=== PATIENT | male | born 1955 | race Caucasian/White ===

== ENCOUNTER 2016-12-24 04:22 | Emergency (ER) | payer OTHER ==
[~2016-12-24] VITALS: Ht 175.3 cm; Wt 87.1 kg
--- NOTE | 2016-12-24 04:45 | NUR ---
PT BIB SELF FROM FROM, PT C/O LEFT SIDED HEAD PAIN, LEFT SIDED LIP TINGLING CHEST PRESSURE AND LEFT ARM PAIN X 6 DAYS. PT AOX3 RR EVEN AND UNLABORED. NO SOB NOTED. NAD NOTED. NO NVD AT THIS TIME. PT GOWNED AND PLACED ON MONITOR, DR. NASCIMENTO AT BEDSIDE FOR EVAL.
[2016-12-24] MEDS ORDERED: ASPIRIN 325 MG TABLET ONE (04:50)
[2016-12-24] MEDS ORDERED: NITROGLYCERIN 0.4 MG/TAB BOTTLE ONE (04:50)
--- NOTE | 2016-12-24 04:50 | NUR ---
STARTED A SALINE LOCK ON THE LAC G18, BLOOD DRAWN AND SENT TO LAB.
--- NOTE | 2016-12-24 04:58 | NUR ---
PT STATES HE FEELS BETTER AFTER 1ST TAB OF NITRO SL.
[2016-12-24] MEDS ORDERED: ASPIRIN 325 MG TABLET PO ONE (05:00)
[2016-12-24] MEDS ORDERED: NITROGLYCERIN 0.4 MG/TAB BOTTLE SL ONE (05:00)
[2016-12-24 05:10] LABS: BASOPHILS % (AUTO) 0.3 % (0.0-2.0); EOSINOPHILS # (AUTO) 0.1 /CMM (0.0-0.7); EOSINOPHILS % (AUTO) 1.9 % (0.0-6.0); HEMATOCRIT 47 % (39-51); HEMOGLOBIN 15.8 g/dL (13.5-17.5); LYMPHOCYTES # (AUTO) 1.4 /CMM (0.8-4.8); LYMPHOCYTES % (AUTO) 24.4 % (20.0-44.0); MEAN CORPUSCULAR HEMOGLOBIN 31 PG (26.0-33.0); MEAN CORPUSCULAR HGB CONC 33 g/dl (31.0-36.0); MEAN CORPUSCULAR VOLUME 92 fL (80-96); MONOCYTES # (AUTO) 0.9 /CMM (0.1-1.30); NEUTROPHILS # (AUTO) 3.4 /CMM (1.8-8.9); NEUTROPHILS % (AUTO) 58.4 % (43.0-81.0); PLATELET COUNT (AUTO) 205 /CMM (150-450); RDW COEFFICIENT OF VARIATION 13.7 (11.5-15.0); RED BLOOD CELL COUNT(AUTO) 5.18 MIL/uL (4.5-6.0); WHITE BLOOD COUNT (AUTO) 5.8 K/uL (4.3-11.0)
[2016-12-24 05:21] LABS: CARBON DIOXIDE 29 mmol/L (21-32); CHLORIDE 102 mmol/L (98-107); CREATININE 0.9 mg/dL (0.6-1.3); GLUCOSE 114 mg/dL (74-106); POTASSIUM 3.7 mmol/L (3.5-5.1); SODIUM SERUM 138 mmol/L (136-145); UREA NITROGEN, BLOOD 22 mg/dL (7-18)
[2016-12-24 05:23] LABS: INR 0.94 (0.87-1.13); PROTHROMBIN TIME 9.8 SECS (9.5-12.7)
[2016-12-24 05:29] LABS: TROPONIN I < 0.017 ng/mL (0.00-0.056)
[2016-12-24 05:30] LABS: EOSINOPHILS % (MANUAL) 3 % (0-4); LYMPHOCYTES % (MANUAL) 26 % (16-48); MONOCYTES % (MANUAL) 12 % (0-11.0); NEUTROPHILS % (MANUAL) 59 (42-76)
--- NOTE | 2016-12-24 05:47 | NUR ---
IV removed. Catheter intact and site benign. Pressure and 4x4 applied to site. No bleeding noted. Patient discharged to home in stable condition. Written and verbal after care instructions given. Patient verbalizes understanding of instruction. ambulatory with a steady gait.
[2016-12-24 05:48] VITALS: BP 141/91
== END 2016-12-24 05:49 | disposition home or self-care (01) ==
LOC: ER 04:26
DX: I10 Essential (primary) hypertension (principal); M10.9 Gout, unspecified; R51 Headache; R79.1 Abnormal coagulation profile
CPT/HCPCS: 36415; 70450; 71010; 80048; 84484; 85025; 85730; 93005; 99285; A4606; Z7610